=== PATIENT | male | born 1980 | race Caucasian/White ===

== ENCOUNTER 2018-09-06 09:41 | Emergency (ER) | payer SELFPAY ==
--- NOTE | 2018-09-06 09:59 | EDPHY ---
H & P Stated Complaint: Flu-like sxs x 3 days;daughter has +flu Time Seen by Provider: 09/06/18 09:47 HPI/ROS: CHIEF COMPLAINT: "I think I have the flu" HISTORY OF PRESENT ILLNESS: 38-year-old immunocompetent male with no seasonal influenza vaccination complaining 3 days of flu-like symptoms, fever, chills, myalgias. [id number] daughter seen the ER few days ago diagnosed with influenza A. Daughter was not vaccinated. Has been consuming Tylenol with improvement symptoms. Last took Tylenol 3 hr prior to arrival. Patient denies: Dyspnea, abdominal pain, nausea, vomiting REVIEW OF SYSTEMS: 10 systems reviewed and negative with the exception of the elements mentioned in the history of present illness PAST MEDICAL & SURGICAL HISTORY: Hepatitis-C SOCIAL HISTORY: Nonsmoker PHYSICAL EXAM (Prior to examination, patient consented to physical exam, hands were washed and my usual and customary physical exam procedures followed) 1) GENERAL: Well-developed, well-nourished, alert and oriented. Appears nontoxic back. 2) HEAD: Normocephalic, atraumatic 3) HEENT: Pupils equal, round, reactive to light bilaterally. Sclera anicteric. Nasopharynx, oropharynx, clear, no lesions. Moist Mucous membranes. Ears bilaterally with normal tympanic membranes. No otitis media otitis externa. 4) NECK: Full range of motion, no meningeal signs. 5) LUNGS: Clear auscultation bilaterally, no wheezes, no rhonchi, no retractions. 6) HEART: Regular rate and rhythm, no murmur, no heave, no gallop. 7) ABDOMEN: No guarding, no rebound, no focal tenderness, negative McBurney's, negative Fisher's, negative Rovsing's, negative peritoneal sign, 8) MUSCULOSKELETAL: Moving all extremities, no focal areas of tenderness, no obvious trauma. No peripheral edema or discoloration. 9) BACK: No CVA tenderness, no midline vertebral tenderness, no fluctuance, no step-off, no obvious trauma, no visual or palpable abnormality. 10) SKIN: No rash, no petechiae. 11) Psychiatric: Patient is oriented X 3, there is no agitation. DIFFERENTIAL DIAGNOSIS: In no particular order including but not limited to influenza a, influenza B, meningitis, volume depletion - Personal History Current Tetanus Diphtheria and Acellular Pertussis (TDAP): Yes - Medical/Surgical History Other PMH: Hep C - Social History Smoking Status: Current every day smoker Constitutional: Initial Vital Signs Temperature (C) 38.5 C H 09/06/18 09:42 Heart Rate 85 09/06/18 09:42 Respiratory Rate 18 09/06/18 09:42 Blood Pressure 107/75 09/06/18 09:42 O2 Sat (%) 97 09/06/18 09:42 O2 Delivery Mode Room Air Allergies/Adverse Reactions: No Known Allergies Allergy (Unverified 09/06/18 09:45) Home Medications: Medication Instructions Recorded NK [No Known Home Meds] 09/06/18 Medical Decision Making ED Course/Re-evaluation: 9:59 a.m.: Doubt meningitis. High clinical suspicion for influenza given his daughter's recent influenza a and lack of immunization. Patient would like to be tested. He will be given ibuprofen in the ER. At this time I do not identify indication for parental hydration. Care of patient under supervision of secondary supervising physician Dr Young . 10:55 a.m.: Influenza testing positive for influenza A. Patient re-examined, resting comfortably at this time. History of hepatitis-C. Recommended ibuprofen as for fever control and for pain control. Have offered Tamiflu which patient declines. Lungs are clear bilaterally. I do not identify indication for further diagnostic studies, chest x-ray or admission. Given my usual and customary respiratory precautions instructions. He feels comfortable being discharged home. - Data Points Laboratory Results: 09/06/18 09:55 Nasal Influenza A PCR FLU A DETECTED H (NEGATIVE) Nasal Influenza B PCR NEGATIVE FOR FLU B (NEGATIVE) Medications Given: Discontinued Medications Ibuprofen (Motrin) 800 mg PO EDNOW ONE Stop: 09/06/18 10:09 Last Admin: 09/06/18 10:14 Dose: 800 mg Departure - Departure Disposition: Home, Routine, Self-Care Clinical Impression: Influenza Condition: Good Instructions: Influenza (ED) Additional Instructions: Adult Pain & Fever Control: We recommend Acetaminophen (Tylenol) and Ibuprofen (Motrin,Advil) for pain and fever control. When fever is high or pain severe, both drugs can be used at the same time, but at different intervals. Please note the time differences. Your dose is: Ibuprofen [800]mg every [6] hours with food OR Note: do not take Acetaminophen with Hydrocodone (Vicodin, Lortab) or Oycodone (Percocet). These medications also contain Acetaminophen. No more than 3000mg of Acetaminophen should be taken in 24 hours (for an adult). Referrals: [facility],. [Clinic] - 1-2 days without fail
[2018-09-06] MEDS ORDERED: IBUPROFEN 800 MG TAB PO ONE (10:08)
[2018-09-06 11:05] VITALS: BP 126/75
== END 2018-09-06 11:04 | disposition home or self-care (01) ==
DX: J09.X2 Influenza due to identified novel influenza A virus with other respiratory manifestations (principal)